=== PATIENT | female | born 1975 | race Two or more races ===

== ENCOUNTER 2019-01-03 16:24 | Emergency (ER) | payer MEDICAID ==
[~2019-01-03] VITALS: Ht 162.6 cm; Wt 68.0 kg
--- NOTE | 2019-01-03 16:23 | Emergency Room Report ---
History of Present Illness Present Illness HPI Patient is a 43-year-old female brought in by EMS after increased witnessed seizure. Patient had a seizure lasting approximately 30 seconds. This was witnessed by bystanders. Patient had no reported injury. She had prior history of seizure disorder. Patient was noted to have seizure activity approximately 20 minutes prior to arrival. Patient had a blood sugar greater than 100. She does not recall what her medications are.She reports having not taken her medications this morning. Allergies: Coded Allergies: No Known Allergies (Unverified , 01/03/19) Patient History Past Medical History: see triage record Reviewed Nursing Documentation: PMH: Agreed; PSxH: Agreed Review of Systems All Other Systems: negative except mentioned in HPI Physical Exam Sp02 EP Interpretation: reviewed, normal General Appearance: normal inspection, well appearing, no apparent distress, alert, GCS 15 Head: atraumatic ENT: normal ENT inspection, hearing grossly normal, normal voice Neck: normal inspection, full range of motion, supple, no bony tend Respiratory: normal inspection, lungs clear, normal breath sounds, no respiratory distress, no retraction, no wheezing Cardiovascular #1: regular rate, rhythm, no edema Gastrointestinal: normal inspection, normal bowel sounds, non tender, soft, no guarding, no hernia Genitourinary: no CVA tenderness Musculoskeletal: normal inspection, back normal, normal range of motion Neurologic: normal inspection, alert, oriented x3, responsive, pick and shovel worker III-XII nml as tested, speech normal Psychiatric: normal inspection, judgement/insight normal, mood/affect normal Skin: normal inspection, normal color, no rash Medical Decision Making Diagnostic Impression: Primary Impression: Epileptic seizure, generalized Additional Impression: Seizure disorder ER Course Patient presented for seizure. Differential diagnosis included medication withdrawal, neuro cysticercosis, electrolyte abnormality, mass lesion, or intracranial hemorrhage. Because of complexity of patient's case laboratory testing and imaging studies were ordered.Patient was noted to have improvement in her mental status. Patient does not recall what her seizure medications are. Patient showed no evidence of head trauma.She was loaded with IV Keppra. She was given IV fluids. Patient was noted to be awake alert and ambulatory at the time of discharge. Patient was given prescription for further antiepileptic medications. She is advised to follow-up with her neurologist. Patient was to return if she had any other concerns. Labs Test 01/03/19 16:35 4/28/19 16:45 White Blood Count 10.9 K/UL (4.8-10.8) Red Blood Count 5.26 M/UL (4.20-5.40) Hemoglobin 14.5 G/DL (12.0-16.0) Hematocrit 43.7 % (37.0-47.0) Mean Corpuscular Volume 83 FL (80-99) Mean Corpuscular Hemoglobin 27.5 PG (27.0-31.0) Mean Corpuscular Hemoglobin Concent 33.1 G/DL (32.0-36.0) Red Cell Distribution Width 12.9 % (11.6-14.8) Platelet Count 210 K/UL (150-450) Mean Platelet Volume 7.4 FL (6.5-10.1) Neutrophils (%) (Auto) 42.5 % (45.0-75.0) Lymphocytes (%) (Auto) 44.4 % (20.0-45.0) Monocytes (%) (Auto) 7.4 % (1.0-10.0) Eosinophils (%) (Auto) 3.9 % (0.0-3.0) Basophils (%) (Auto) 1.9 % (0.0-2.0) Sodium Level 141 MMOL/L (136-145) Potassium Level 3.5 MMOL/L (3.5-5.1) Chloride Level 103 MMOL/L (98-107) Carbon Dioxide Level 20 MMOL/L (21-32) Anion Gap 18 mmol/L (5-15) Blood Urea Nitrogen 9 mg/dL (7-18) Creatinine 1.1 MG/DL (0.55-1.30) Estimat Glomerular Filtration Rate 53.7 mL/min (>60) Glucose Level 143 MG/DL (74-106) Calcium Level 9.8 MG/DL (8.5-10.1) Total Bilirubin 0.4 MG/DL (0.2-1.0) Aspartate Amino Transf (AST/SGOT) 33 U/L (15-37) Alanine Aminotransferase (ALT/SGPT) 57 U/L (12-78) Alkaline Phosphatase 99 U/L (46-116) Total Protein 8.4 G/DL (6.4-8.2) Albumin 4.2 G/DL (3.4-5.0) Globulin 4.2 g/dL Albumin/Globulin Ratio 1.0 (1.0-2.7) Urine HCG, Qualitative Negative (NEGATIVE) Status: improved Disposition: HOME, SELF-CARE Condition: Stable Scripts Levetiracetam (KEPPRA) 500 Mg Tablet 500 MG ORAL EVERY 12 HOURS, #30 TAB 0 Refills Prov: Jovani Squires MD 01/03/19 Jovani Squires MD Jan 03, 2019 16:22
[2019-01-03 16:29] VITALS: BP 147/98
[2019-01-03] MEDS ORDERED: levETIRAcetam 500 MG in D5W 110 ML IV ONE (16:30)
[2019-01-03] MEDS ORDERED: UNOBMED (16:41)
[2019-01-03 16:46] LABS: BASOPHILS % (AUTO) 1.9 % (0.0-2.0); EOSINOPHILS % (AUTO) 3.9 % (0.0-3.0); HEMATOCRIT 43.7 % (37.0-47.0); HEMOGLOBIN 14.5 G/DL (12.0-16.0); LYMPHOCYTES % (AUTO) 44.4 % (20.0-45.0); MEAN CORPUSCULAR VOLUME 83 FL (80-99); MONOCYTES % (AUTO) 7.4 % (1.0-10.0); NEUTROPHILS % (AUTO) 42.5 % (45.0-75.0); PLATELET COUNT 210 K/UL (150-450); RED BLOOD COUNT 5.26 M/UL (4.20-5.40); RED CELL DISTRIBUTION WIDTH 12.9 % (11.6-14.8); WHITE BLOOD COUNT 10.9 K/UL (4.8-10.8)
[2019-01-03 16:55] LABS: ANION GAP 18 mmol/L (5-15); BLOOD UREA NITROGEN 9 mg/dL (7-18); CALCIUM 9.8 MG/DL (8.5-10.1); CARBON DIOXIDE 20 MMOL/L (21-32); CHLORIDE 103 MMOL/L (98-107); CREATININE 1.1 MG/DL (0.55-1.30); POTASSIUM 3.5 MMOL/L (3.5-5.1); SODIUM 141 MMOL/L (136-145)
[2019-01-03 16:59] LABS: ALANINE AMINOTRANSFERASE 57 U/L (12-78); ALBUMIN 4.2 G/DL (3.4-5.0); ALKALINE PHOSPHATASE 99 U/L (46-116); ASPARTATE AMINO TRANSFERASE 33 U/L (15-37); BILIRUBIN,TOTAL 0.4 MG/DL (0.2-1.0)
[2019-01-03] MEDS ORDERED: KEPPRA500 M4 ORAL (17:50)
--- NOTE | 2019-01-07 01:01 | Cardiology Report ---
APPROVED REPORT EKG Measurement Heart [id number] Sinus tachycardia Otherwise normal ECG
== END 2019-01-03 18:14 | disposition home or self-care (01) ==
LOC: EDBD 16:24 → EMR 16:59
DX: G40.409 Other generalized epilepsy and epileptic syndromes, not intractable, without status epilepticus (principal)
CPT/HCPCS: 36415; 80053; 81025; 85025; 93005; 96361; 96374; 99284; J1953

== ENCOUNTER 2019-07-03 17:22 | Emergency (ER) | payer MEDICAID ==
[~2019-07-03] VITALS: Ht 157.5 cm; Wt 68.0 kg
[~2019-07-03 17:22] MED LIST: KEPPRA500 M4 ORAL; UNOBMED
[2019-07-03] MEDS ORDERED: levETIRAcetam 1,000mg/NS100ml 100 ML IVPB ONE (17:30)
--- NOTE | 2019-07-03 17:31 | Emergency Room Report ---
History of Present Illness General Chief Complaint: Seizure Source: Family Member - Son, EMS Present Illness HPI 44-year-old female history of epilepsy had a generalized tonic-clonic seizure just prior to arrival lasting 30 seconds, patient required 5 mg of Versed terminated seizure, history is limited by patient's condition, unknown aggravating relieving factors severity was severe lasting 30 seconds, patient presents for evaluation via EMS Allergies: Coded Allergies: No Known Allergies (Unverified , 01/03/19) Patient History Limited by: medical condition - AMS Past Medical History: see triage record Reviewed Nursing Documentation: PMH: Agreed; PSxH: Agreed Nursing Documentation-PMH Past Medical History Deferred: No Family Available Past Medical History: Deferred Hx Seizures: Yes Review of Systems All Other Systems: limited - AMS Physical Exam Vital Signs Date Time Temp Pulse Resp B/P (MAP) Pulse Ox O2 Delivery O2 Flow Rate FiO2 07/03/19 17:22 98.1 118 20 135/84 (101) 94 Room Air Sp02 EP Interpretation: reviewed, normal General Appearance: lethargic Head: normocephalic, atraumatic Eyes: bilateral eye PERRL, bilateral eye EOMI ENT: uvula midline, moist mucus membranes Neck: supple, thyroid normal, supple/symm/no masses Respiratory: lungs clear, no respiratory distress, no retraction, no accessory muscle use Cardiovascular #1: normal peripheral pulses, no edema, no gallop, no murmur, tachycardia Gastrointestinal: non tender, soft, no guarding, no rebound Musculoskeletal: normal inspection Neurologic: responsive, other - Sleepy Skin: no rash, warm/dry Medical Decision Making Diagnostic Impression: Primary Impression: Epileptic seizure, generalized ER Course Patient with seizure disorder, history of epilepsy, seen here previously presents with an acute seizure that terminated when given Versed, patient cannot member what medication she is taking, strong suspicion that patient is noncompliant, additionally differential diagnosis includes hemorrhage, neurocysticercosis, generalized seizure disorder Will provide patient with a Keppra load, labs checked Reevaluation 5:46 PM, patient is back to baseline, walking, talking. Reevaluation 6pm, reports that patient has not been taking her seizure medication for over a month they have not been able to see a physician, and obtain a prescription. Disposition home with return precautions Laboratory Tests Test 07/03/19 17:40 White Blood Count 9.1 K/UL (4.8-10.8) Red Blood Count 5.21 M/UL (4.20-5.40) Hemoglobin 14.4 G/DL (12.0-16.0) Hematocrit 43.9 % (37.0-47.0) Mean Corpuscular Volume 84 FL (80-99) Mean Corpuscular Hemoglobin 27.7 PG (27.0-31.0) Mean Corpuscular Hemoglobin Concent 32.9 G/DL (32.0-36.0) Red Cell Distribution Width 11.6 % (11.6-14.8) Platelet Count 197 K/UL (150-450) Mean Platelet Volume 8.0 FL (6.5-10.1) Neutrophils (%) (Auto) 55.9 % (45.0-75.0) Lymphocytes (%) (Auto) 28.9 % (20.0-45.0) Monocytes (%) (Auto) 8.2 % (1.0-10.0) Eosinophils (%) (Auto) 5.1 % (0.0-3.0) H Basophils (%) (Auto) 1.9 % (0.0-2.0) Sodium Level 144 MMOL/L (136-145) Potassium Level 3.1 MMOL/L (3.5-5.1) L Chloride Level 104 MMOL/L (98-107) Carbon Dioxide Level 19 MMOL/L (21-32) L Anion Gap 21 mmol/L (5-15) H Blood Urea Nitrogen 11 mg/dL (7-18) Creatinine 1.2 MG/DL (0.55-1.30) Estimate Glomerular Filtration Rate 48.4 mL/min (>60) Glucose Level 145 MG/DL (74-106) H Calcium Level 9.3 MG/DL (8.5-10.1) Total Bilirubin 0.3 MG/DL (0.2-1.0) Aspartate Amino Transferase (AST) 23 U/L (15-37) Alanine Aminotransferase (ALT) 45 U/L (12-78) Alkaline Phosphatase 93 U/L (46-116) Total Protein 8.0 G/DL (6.4-8.2) Albumin 4.0 G/DL (3.4-5.0) Globulin 4.0 g/dL Albumin/Globulin Ratio 1.0 (1.0-2.7) Human Chorionic Gonadotropin, Quant 3 mIU/mL (1-6) Salicylates Level 1.3 ug/mL (2.8-20) L Phenytoin (Dilantin) Level 1.0 ug/mL (10-20) L Valproic Acid Level < 3 MCG/ML (50-100) L Carbamazepine (Tegretol) Level < 0.5 ug/mL (4.0-12.0) L Phenobarbital Level < 1.0 ug/mL (15-40) L Rhythm Strip Diag. Results Rhythm Strip Time: 17:30 EP Interpretation: yes Rate: 129 Rhythm: other - Sinus Tachycardia Rate 123 CT/MRI/US Diagnostic Results CT/MRI/US Diagnostic Results : Impression Final Report EXAM: CT Head Without Intravenous Contrast CLINICAL HISTORY: AMS TECHNIQUE: Axial computed tomography images of the head/brain without intravenous contrast. CTDI is 62.70 mGy and DLP is 1300 mGy-cm. One or more of the following dose reduction techniques were used: automated exposure control, adjustment of the mA and/or kV according to patient size, use of iterative reconstruction technique. 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 No significant white matter disease. Ventricles: Unremarkable. No ventriculomegaly. Bones/joints: Unremarkable. No acute fracture. Soft tissues: Unremarkable. Sinuses: Unremarkable as visualized. No acute sinusitis. Mastoid air cells: Unremarkable as visualized. No mastoid effusion. 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 Otherwise the brain is unremarkable with no acute findings. Radiologist: Naz Garcia MD Electronically Signed: 07/03/19 18:15 Study ready at 18:13 and initial results transmitted at 18:15 Last Vital Signs Date Time Temp Pulse Resp B/P (MAP) Pulse Ox O2 Delivery O2 Flow Rate FiO2 07/03/19 17:22 98.1 118 20 135/84 (101) 94 Room Air Disposition: HOME, SELF-CARE Condition: Stable Scripts Levetiracetam (KEPPRA) 500 Mg Tablet 500 MG ORAL EVERY 12 HOURS, #120 TAB 0 Refills Prov: Igor Harper MD 07/03/19 [facility] Patient Instructions: Seizure, Adult Additional Instructions: The patient was provided with discharge instructions, notified to follow-up with a primary care doctor and or specialist in the next 24-48 hours, and to return to the ED if they have worsening of their symptoms. Please note that this report is being documented using DRAGON technology. This can lead to erroneous entry secondary to incorrect interpretation by the dictating instrument. PLEASE FOLLOW-UP WITH PCP/NEUROLOGIST Igor Harper MD Jul 03, 2019 17:30
[2019-07-03 17:38] VITALS: BP 135/84
--- NOTE | 2019-07-03 17:41 | NUR ---
ED Nurse Note: pt brought in to ER from bus after 30 seconds of witnessed seizure. pt aao x2-3 and fatigued currently. calm and cooperative. skin clean and intact. pt gowned and on awake overnight monitor. no acute distress noted. son at the bedside.
[2019-07-03] MEDS ORDERED: KEPPRA500 M4 ORAL (17:47)
--- NOTE | 2019-07-03 17:52 | NUR ---
ED Nurse Note: pt went down to CT scan in stable condition.
[2019-07-03 17:53] LABS: BASOPHILS % (AUTO) 1.9 % (0.0-2.0); EOSINOPHILS % (AUTO) 5.1 % (0.0-3.0); HEMATOCRIT 43.9 % (37.0-47.0); HEMOGLOBIN 14.4 G/DL (12.0-16.0); LYMPHOCYTES % (AUTO) 28.9 % (20.0-45.0); MEAN CORPUSCULAR VOLUME 84 FL (80-99); MONOCYTES % (AUTO) 8.2 % (1.0-10.0); NEUTROPHILS % (AUTO) 55.9 % (45.0-75.0); PLATELET COUNT 197 K/UL (150-450); RED BLOOD COUNT 5.21 M/UL (4.20-5.40); RED CELL DISTRIBUTION WIDTH 11.6 % (11.6-14.8); WHITE BLOOD COUNT 9.1 K/UL (4.8-10.8)
--- NOTE | 2019-07-03 17:53 | NUR ---
ED Nurse Note: per ERMD, no need to perform straight catheter since pt is aao x 4 now. will wait until pt can urinate.
--- NOTE | 2019-07-03 18:11 | NUR ---
ED Nurse Note: pt reminded about urine sample. pt reported she will let nurse know when she can urinate. ERMD made aware.
--- NOTE | 2019-07-03 18:16 | Diagnostic Imaging Report ---
EXAM: CT Head Without Intravenous Contrast CLINICAL HISTORY: AMS TECHNIQUE: Axial computed tomography images of the head brain without intravenous contrast. CTDI is 62.70 mGy and DLP is 1300 mGy-cm. One or more of the following dose reduction techniques were used: automated exposure control, adjustment of the mA and or kV according to patient size, use of iterative reconstruction technique. 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 No significant white matter disease. Ventricles: Unremarkable. No ventriculomegaly. Bones joints: Unremarkable. No acute fracture. Soft tissues: Unremarkable. Sinuses: Unremarkable as visualized. No acute sinusitis. Mastoid air cells: Unremarkable as visualized. No mastoid effusion. 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 Otherwise the brain is unremarkable with no acute findings.
--- NOTE | 2019-07-03 18:24 | NUR ---
ED Nurse Note: ERMD canceled urine sample collect.
--- NOTE | 2019-07-03 18:28 | NUR ---
ED Nurse Note: pt c/o headache 02/15. ERMD made aware.
[2019-07-03 18:34] LABS: ANION GAP 21 mmol/L (5-15); BLOOD UREA NITROGEN 11 mg/dL (7-18); CALCIUM 9.3 MG/DL (8.5-10.1); CARBON DIOXIDE 19 MMOL/L (21-32); CHLORIDE 104 MMOL/L (98-107); CREATININE 1.2 MG/DL (0.55-1.30); POTASSIUM 3.1 MMOL/L (3.5-5.1); SODIUM 144 MMOL/L (136-145)
[2019-07-03 18:39] LABS: ALANINE AMINOTRANSFERASE 45 U/L (12-78); ALKALINE PHOSPHATASE 93 U/L (46-116); ASPARTATE AMINO TRANSFERASE 23 U/L (15-37); BILIRUBIN,TOTAL 0.3 MG/DL (0.2-1.0)
[2019-07-03] MEDS ORDERED: Acetaminophen 500mg (ES) tab ORAL ONE (18:45)
[2019-07-03 18:58] VITALS: BP 119/81
--- NOTE | 2019-07-03 18:59 | NUR ---
ED Nurse Note: Pt cleared by health care Provider for discharge. Patient accompanied by and son. DC instructions/prescription was given and explained to pt and verbalized understanding of teachings. Patient was emphasized not to skip the seizure medication. All medical deviecs such as ID band removed. Pt is AAO x4, ambulatory and left with all personal belongings.
--- NOTE | 2019-07-06 16:54 | Cardiology Report ---
APPROVED REPORT EKG Measurement Heart [id number] Sinus tachycardia Otherwise normal ECG
== END 2019-07-03 19:00 | disposition home or self-care (01) ==
LOC: EDBD 17:22 → EMR 17:35
DX: G40.409 Other generalized epilepsy and epileptic syndromes, not intractable, without status epilepticus (principal); G93.89 Other specified disorders of brain; R00.0 Tachycardia, unspecified
CPT/HCPCS: 36415; 70450; 80053; 80156; 80164; 80184; 80185; 82962; 84702; 85025; 93005; 96361; 96374; G0481; J1953; Z7502; 99284; G0480; J7030